=== PATIENT | male | born 1970 | race Caucasian/White ===

== ENCOUNTER 2020-02-11 10:35 | Observation (INO) ==
[2020-02-11] MEDS ORDERED: Ondansetron 4 MG/2 ML VIAL IVP STA (10:48)
[2020-02-11] MEDS ORDERED: 0.9 % Sodium Chloride 1,000 ML IVC ONE ×2 (10:49→13:20)
[2020-02-11] MEDS ORDERED: Isovue-370 500 ML BOTTLE IVP ONE (10:50)
[2020-02-11 11:09] LABS: Basophils # 0.1 K/mcL (0.0-0.2); Basophils % 0.3 %; Hemoglobin 16.9 g/dL (12.9-16.9); Immature Granulocytes % 0.6 % (0-4); Lymphocytes # 1.4 K/mcL (0.6-4.6); Lymphocytes % 7.3 %; Mean Corpuscular HGB Conc 36.7 g/dL (31.6-35.5); Mean Corpuscular Hemoglobin 32.2 pg (28.0-33.3); Mean Corpuscular Volume 87.6 fL (83.0-100.0); Mean Platelet Volume 8.9 fL (9.4-12.4); Monocytes # 1.3 K/mcL (0.0-1.3); Monocytes % 6.9 %; Neutrophils # 15.8 K/mcL (1.6-8.9); Platelet Count 510 K/mcL (140-400); Red Blood Count 5.25 M/mcL (4.19-5.50); Red Cell Distribution Width 11.9 % (11.5-14.5); Segmented Neutrophils % 84.9 %; White Blood Count 18.6 K/mcL (4.3-11.1)
[2020-02-11 11:29] LABS: Albumin/Globulin Ratio 1.5 (1.1-2.2); Bilirubin,Direct 0.1 mg/dL (0.0-0.2); Bilirubin,Indirect 0.8 mg/dL (0.0-1.0); Bilirubin,Total 0.9 mg/dL (0.3-1.0); Calcium 10.4 mg/dL (8.6-10.3); Globulin 3.3 g/dL (2.4-3.5); Potassium 2.8 mEq/L (3.5-5.1); Total Protein 8.3 g/dL (6.4-8.9)
[2020-02-11] MEDS ORDERED: *HR* Promethazine 25 MG/ML VIAL IVP STA (11:48)
[2020-02-11] MEDS ORDERED: Haloperidol Lactate 5 MG/ML VIAL IVP ONE (12:15)
[2020-02-11] MEDS ORDERED: *HR* Labetalol 20 MG/4 ML SYRINGE IVP ONE (12:26)
[2020-02-11] MEDS ORDERED: Ondansetron 4 MG/2 ML VIAL IVP ONE (12:27)
[2020-02-11 13:01] LABS: Basophils % 0.1 %; Hematocrit 45.1 % (37.5-50.1); Hemoglobin 15.9 g/dL (12.9-16.9); Immature Granulocytes % 0.5 % (0-4); Lymphocytes % 6.4 %; Mean Corpuscular HGB Conc 35.3 g/dL (31.6-35.5); Mean Corpuscular Hemoglobin 31.8 pg (28.0-33.3); Mean Corpuscular Volume 90.2 fL (83.0-100.0); Mean Platelet Volume 8.8 fL (9.4-12.4); Monocytes # 0.9 K/mcL (0.0-1.3); Monocytes % 5.6 %; Neutrophils # 13.5 K/mcL (1.6-8.9); Platelet Count 450 K/mcL (140-400); Red Cell Distribution Width 11.9 % (11.5-14.5); Segmented Neutrophils % 87.4 %; White Blood Count 15.4 K/mcL (4.3-11.1)
[2020-02-11 13:38] LABS: Calcium 9.7 mg/dL (8.6-10.3); Potassium 3.1 mEq/L (3.5-5.1)
[2020-02-11] MEDS ORDERED: *HR* Promethazine 25 MG/ML VIAL IVP PRN (14:56)
[2020-02-11] MEDS ORDERED: Acetaminophen 325 MG TABLET PO PRN (14:56)
[2020-02-11] MEDS ORDERED: Ondansetron 4 MG/2 ML VIAL IVP PRN (14:56)
[2020-02-11] MEDS ORDERED: Haloperidol Lactate 5 MG/ML VIAL IVP PRN (15:00)
[2020-02-11] MEDS ORDERED: 0.9 % Sodium Chloride w KCl 20 MEQ/1,000 ML MLS IVC SCH (15:00)
[2020-02-11] MEDS ORDERED: *HR* LORazepam 2 MG/ML VIAL IVP ONE (15:10)
[2020-02-11 15:21] LABS: Bilirubin,Urine Negative (Negative); Blood,Urine Negative (Negative); Clarity,Urine Clear (Clear); Color,Urine Light-Yellow (Yellow); Glucose,Urine (UA) 50 mg/dL (Normal); Hyaline Casts,Urine Many per lpf (None Seen); Ketones,Urine Negative (Negative); Leukocyte Esterase,Urine Negative (Negative); Mucus,Urine Few per lpf (None-Few); Nitrite,Urine Negative (Negative); Protein,Urine Trace mg/dL (Neg-Trace); RBC,Urine 0-3 per hpf (0-3); Specific Gravity,Urine 1.015 (1.010-1.025); Squamous Epithelial Cell,Urine Few per hpf (None-Few); Urobilinogen,Urine Normal (Normal)
[2020-02-11 15:29] LABS: Magnesium 1.7 mg/dL (1.6-2.6); Phosphorous 2.4 mg/dL (2.7-4.5)
[2020-02-11 15:51] LABS: Sodium, Urine 24.6 mEq/L
[2020-02-11] MEDS: Haloperidol Lactate 5 MG/ML VIAL IVP PRN (16:11)
[2020-02-11] MEDS: cefTRIAXone 1,000 MG in Water for inj. (sterile) 10 ML IVP SCH (18:31)
[2020-02-11] MEDS: Ondansetron 4 MG/2 ML VIAL IVP PRN (18:45)
[2020-02-11] MEDS ORDERED: Potassium Chloride 40 MEQ, Lidocaine 1% 2 ML in 0.9 % Sodium Chloride 500 ML IVPB ONE (19:28)
[2020-02-11] MEDS: *HR* Promethazine 25 MG/ML VIAL IVP PRN (21:28)
[2020-02-11] MEDS ORDERED: Acetaminophen IV 1,000 MG/100 ML INFUS..BTL IVPB ONE (21:36)
[2020-02-12] MEDS: Ondansetron 4 MG/2 ML VIAL IVP PRN (00:32)
[2020-02-12] MEDS: *HR* LORazepam 2 MG/ML VIAL IVP PRN ×4 (01:02→19:49)
[2020-02-12 01:14] LABS: Hematocrit 39.8 % (37.5-50.1); Mean Corpuscular HGB Conc 35.2 g/dL (31.6-35.5); Mean Corpuscular Hemoglobin 31.7 pg (28.0-33.3); Mean Corpuscular Volume 90.2 fL (83.0-100.0); Mean Platelet Volume 8.7 fL (9.4-12.4); Platelet Count 436 K/mcL (140-400); Red Blood Count 4.41 M/mcL (4.19-5.50); White Blood Count 13.1 K/mcL (4.3-11.1)
[2020-02-12 01:34] LABS: Calcium 8.5 mg/dL (8.6-10.3); Magnesium 1.7 mg/dL (1.6-2.6); Phosphorous 2.6 mg/dL (2.7-4.5)
[2020-02-12] MEDS ORDERED: Potassium Chloride 20 MEQ, Lidocaine 1% 2 ML in 0.9 % Sodium Chloride 250 ML IVPB ONE ×2 (01:37→08:50)
[2020-02-12] MEDS ORDERED: Prochlorperazine 10 MG/2 ML VIAL IVP PRN (03:31)
[2020-02-12] MEDS: Haloperidol Lactate 5 MG/ML VIAL IVP PRN (06:54)
[2020-02-12] MEDS: cefTRIAXone 1,000 MG in Water for inj. (sterile) 10 ML IVP SCH (08:46)
[2020-02-12] MEDS: *HR* Promethazine 25 MG/ML VIAL IVP PRN ×3 (08:48→23:28)
[2020-02-12] MEDS ORDERED: *HR* Promethazine 25 MG/ML VIAL IVP ONE (10:40)
[2020-02-12] MEDS ORDERED: QUEtiapine Fumarate 100 MG TABLET PO SCH (10:45)
[2020-02-12] MEDS ORDERED: lisinopriL 10 MG TABLET PO SCH (10:45)
[2020-02-12] MEDS ORDERED: Acetaminophen 325 MG TABLET PO ONE (20:58)
[2020-02-12] MEDS ORDERED: Apixaban 5 MG TABLET PO SCH (21:00)
[2020-02-12 23:12] VITALS: BP 121/70
[2020-02-13] MEDS ORDERED: Acetaminophen 325 MG TABLET PO ONE (02:13)
== END 2020-02-13 02:45 | disposition left against medical advice (07) ==
LOC: EMEROOARM 10:35 → 2ANU 10:35 → SUATTDRO 13:52 → 2ANU 15:04
PROVIDERS: ADMIT Internal Medicine; ATTEND Student in an Organized Health Care Education/Training Program

== ENCOUNTER 2021-03-21 13:04 | Observation (INO) ==
[2021-03-21 13:48] LABS: Basophils % 0.4 %; Eosinophils # 0.2 K/mcL (0.0-0.6); Eosinophils % 3.4 %; Immature Granulocytes % 0.4 % (0-4); Lymphocytes # 1.7 K/mcL (0.6-4.6); Lymphocytes % 31.3 %; Mean Corpuscular HGB Conc 34.9 g/dL (31.6-35.5); Mean Corpuscular Hemoglobin 31.3 pg (28.0-33.3); Mean Corpuscular Volume 89.6 fL (83.0-100.0); Mean Platelet Volume 9.1 fL (9.4-12.4); Monocytes # 0.3 K/mcL (0.0-1.3); Monocytes % 5.1 %; Neutrophils # 3.2 K/mcL (1.6-8.9); Platelet Count 316 K/mcL (140-400); Red Cell Distribution Width 11.1 % (11.5-14.5); Segmented Neutrophils % 59.4 %; White Blood Count 5.3 K/mcL (4.3-11.1)
[2021-03-21 13:56] LABS: INR 1.8; Prothrombin Time 20.3 Seconds (9.4-12.1)
[2021-03-21 13:59] LABS: Activated Partial Thrombo Time 46.1 Seconds (26.0-36.0)
[2021-03-21 14:09] LABS: BUN/Creatinine Ratio 6 (6-26); Blood Urea Nitrogen 7 mg/dL (6-20); Calcium 9.6 mg/dL (8.6-10.3); Carbon Dioxide 20 mEq/L (23-29); Chloride 103 mEq/L (98-107); Glucose 144 mg/dL (70-105); Osmolality,Calculated 277 (280-300); Potassium 3.8 mEq/L (3.5-5.1); Sodium 133 mEq/L (136-145); Troponin I < 0.03 ng/mL (< 0.04); eGFR For African Americans > 60 (> 60); eGFR For Non-African Americans > 60 (> 60)
[2021-03-21] MEDS ORDERED: Ondansetron 4 MG/2 ML VIAL IVP PRN (14:50)
[2021-03-21] MEDS ORDERED: Melatonin 3 MG TABLET PO PRN (14:50)
[2021-03-21] MEDS ORDERED: Perflutren Lipid Microsphere 1.3 ML in 0.9 % Sodium Chloride 8.7 ML IVP PRN (14:50)
[2021-03-21] MEDS ORDERED: Naloxone 0.4 MG/ML INJ IVP PRN (14:50)
[2021-03-21] MEDS ORDERED: Gabapentin 400 MG CAPSULE PO PRN (16:52)
[2021-03-21] MEDS: 0.9 % Sodium Chloride 1,000 ML IVC SCH (17:35)
[2021-03-21 19:22] LABS: Estimated Average Glucose 114 mg/dl; Hemoglobin A1C 5.6 %
[2021-03-21] MEDS: Apixaban 5 MG TABLET PO SCH (19:53)
[2021-03-21] MEDS: lisinopriL 20 MG TABLET PO SCH (19:53)
[2021-03-21] MEDS: QUEtiapine Fumarate 100 MG TABLET PO SCH (19:54)
[2021-03-21] MEDS ORDERED: *HR* Buprenorphine HCl 8 MG TAB.SUBL SL SCH (21:00)
[2021-03-21 21:25] LABS: Amphetamine Screen,Urine Negative ng/mL (Cutoff=1000); Barbiturate Screen,Urine Negative ng/mL (Cutoff=200); Benzodiazepines Screen,Urine Negative ng/mL (Cutoff=200); Cannabinoid Screen,Urine Negative ng/mL (Cutoff = 50); Cocaine Screen,Urine Negative ng/mL (Cutoff= 300); Opiate Screen,Urine Negative ng/mL (Cutoff=300); Phencyclidine Screen,Urine Negative ng/mL (Cutoff=25)
[2021-03-21] MEDS: hydrOXYzine pamoate 25 MG CAPSULE PO PRN (21:53)
[2021-03-22 03:26] LABS: Alanine Aminotransferase 20 Units/L (7-52); Albumin 4.1 g/dL (3.5-5.7); Albumin/Globulin Ratio 1.6 (1.1-2.2); Alkaline Phosphatase 83 Units/L (34-104); Aspartate Amino Transferase 20 Units/L (13-39); BUN/Creatinine Ratio 8 (6-26); Bilirubin,Total 0.3 mg/dL (0.3-1.0); Blood Urea Nitrogen 9 mg/dL (6-20); Calcium 9.1 mg/dL (8.6-10.3); Carbon Dioxide 23 mEq/L (23-29); Chloride 106 mEq/L (98-107); Chol/HDL Ratio 3.7 (0-4.9); Cholesterol 92 mg/dL (< 200); Globulin 2.5 g/dL (2.4-3.5); Glucose 90 mg/dL (70-105); HDL Cholesterol 25 mg/dL (40-59); LDL Cholesterol,Calculated 2 mg/dL (< 100); Osmolality,Calculated 282 (280-300); Potassium 4.2 mEq/L (3.5-5.1); Sodium 137 mEq/L (136-145); Total Protein 6.6 g/dL (6.4-8.9); Triglycerides 325 mg/dL (< 150); eGFR For African Americans > 60 (> 60); eGFR For Non-African Americans > 60 (> 60)
[2021-03-22] MEDS ORDERED: Regadenoson 0.4 MG/5 ML SYRINGE IVP ONE (06:46)
[2021-03-22 06:52] VITALS: BP 115/80; PULSE 58; TEMP 97.5; O2SAT 99
[2021-03-22] MEDS: 0.9 % Sodium Chloride 1,000 ML IVC SCH (09:13)
[2021-03-22] MEDS: QUEtiapine Fumarate 100 MG TABLET PO SCH (09:26)
[2021-03-22] MEDS: Apixaban 5 MG TABLET PO SCH (09:26)
[2021-03-22] MEDS: lisinopriL 20 MG TABLET PO SCH (09:26)
[2021-03-22] MEDS: hydrOXYzine pamoate 25 MG CAPSULE PO PRN (09:27)
[2021-03-22] MEDS ORDERED: *HR* Buprenorphine HCl 2 MG SUBLINGUAL TABLET SL SCH (10:00)
== END 2021-03-22 14:48 | disposition home or self-care (01) ==
LOC: EMEROOARM 13:04 → 3BNU 13:04
PROVIDERS: ADMIT Internal Medicine; ATTEND Internal Medicine

== ENCOUNTER 2021-08-09 14:36 | Observation (INO) ==
[2021-08-09] MEDS ORDERED: 0.9 % Sodium Chloride 1,000 ML IVC ONE ×2 (15:14→16:51)
[2021-08-09 15:36] LABS: Basophils # 0.1 K/mcL (0.0-0.2); Basophils % 0.7 %; Eosinophils # 0.1 K/mcL (0.0-0.6); Eosinophils % 1.8 %; Hematocrit 43.3 % (37.5-50.1); Immature Granulocytes % 0.4 % (0-4); Lymphocytes # 2.1 K/mcL (0.6-4.6); Lymphocytes % 31.2 %; Mean Corpuscular Hemoglobin 31.1 pg (28.0-33.3); Mean Corpuscular Volume 84.1 fL (83.0-100.0); Monocytes # 0.7 K/mcL (0.0-1.3); Neutrophils # 3.8 K/mcL (1.6-8.9); Platelet Count 373 K/mcL (140-400); Red Blood Count 5.15 M/mcL (4.19-5.50); Segmented Neutrophils % 55.9 %; White Blood Count 6.8 K/mcL (4.3-11.1)
[2021-08-09 15:49] LABS: Alanine Aminotransferase 22 Units/L (7-52); Albumin 4.4 g/dL (3.5-5.7); Albumin/Globulin Ratio 1.8 (1.1-2.2); Alkaline Phosphatase 66 Units/L (34-104); Aspartate Amino Transferase 23 Units/L (13-39); BUN/Creatinine Ratio 8 (6-26); Bilirubin,Direct 0.4 mg/dL (0.0-0.2); Bilirubin,Indirect 1.2 mg/dL (0.0-1.0); Bilirubin,Total 1.6 mg/dL (0.3-1.0); Blood Urea Nitrogen 13 mg/dL (6-20); Calcium 9.2 mg/dL (8.6-10.3); Carbon Dioxide 22 mEq/L (23-29); Chloride 89 mEq/L (98-107); Creatine Kinase 293 Units/L (30-223); Ethanol < 10 mg/dL (Less than 10); Globulin 2.4 g/dL (2.4-3.5); Glucose 87 mg/dL (70-105); Osmolality,Calculated 265 (280-300); Potassium 2.7 mEq/L (3.5-5.1); Sodium 128 mEq/L (136-145); Total Protein 6.8 g/dL (6.4-8.9); Troponin I < 0.03 ng/mL (< 0.04); eGFR For African Americans 56 (> 60); eGFR For Non-African Americans 46 (> 60)
[2021-08-09 15:58] LABS: Amphetamine Screen,Urine Negative ng/mL (Cutoff=1000); Barbiturate Screen,Urine Negative ng/mL (Cutoff=200); Benzodiazepines Screen,Urine Negative ng/mL (Cutoff=200); Cannabinoid Screen,Urine Negative ng/mL (Cutoff = 50); Cocaine Screen,Urine Negative ng/mL (Cutoff= 300); Opiate Screen,Urine Negative ng/mL (Cutoff=300); Phencyclidine Screen,Urine Negative ng/mL (Cutoff=25)
[2021-08-09 16:20] LABS: INR 1.4; Prothrombin Time 15.2 Seconds (9.4-12.1)
[2021-08-09 16:23] LABS: Activated Partial Thrombo Time 28.6 Seconds (26.0-36.0)
[2021-08-09 16:32] LABS: Amorphous Sediment,Urine Few per hpf (None-Few); Bacteria,Urine Few per hpf (None-Few); Bilirubin,Urine Negative (Negative); Blood,Urine Negative (Negative); Budding Yeast,Urine Few per hpf (None Seen); Calcium Oxalate Crystals,Urine Present per hpf; Clarity,Urine Clear (Clear); Color,Urine Yellow (Yellow); Glucose,Urine (UA) Normal (Normal); Ketones,Urine Negative (Negative); Leukocyte Esterase,Urine Large (Negative); Mucus,Urine Few per lpf (None-Few); Nitrite,Urine Negative (Negative); PH,Urine 6.5 pH Units (5.0-8.0); Protein,Urine 50 mg/dL (Neg-Trace); RBC,Urine 15-30 per hpf (0-3); Specific Gravity,Urine 1.019 (1.010-1.025); Squamous Epithelial Cell,Urine Few per hpf (None-Few); WBC,Urine 0-3 per hpf (0-3)
[2021-08-09] MEDS ORDERED: Isovue-370 500 ML BOTTLE IVP ONE (16:49)
[2021-08-09] MEDS ORDERED: cefTRIAXone 1,000 MG in 0.9 % Sodium Chloride Mini Bag 100 ML IVPB ONE (16:51)
[2021-08-09 19:59] LABS: Acetaminophen < 10 mcg/mL (10-20); Salicylate < 2.5 mg/dL (15.0-30.0)
[2021-08-09 20:32] LABS: Adenovirus Not Detected (Not Detect); Coronavirus 229E Not Detected (Not Detect); Coronavirus HKU1 Not Detected (Not Detect); Coronavirus NL63 Not Detected (Not Detect); Coronavirus OC43 Not Detected (Not Detect); Human Metapneumovirus Not Detected (Not Detect); Human Rhinovirus/Enterovirus Not Detected (Not Detect); SARS-CoV-2 Not Detected (Not Detect)
[2021-08-09 20:33] LABS: Bordetella Pertussis Not Detected (Not Detect); Chlamydophila pneumoniae Not Detected (Not Detect); Influenza A Subtype 2009 H1 Not Detected (Not Detect); Influenza B Not Detected (Not Detect); Mycoplasma pneumoniae Not Detected (Not Detect); Parainfluenza Virus 1 Not Detected (Not Detect); Parainfluenza Virus 2 Not Detected (Not Detect); Parainfluenza Virus 3 Not Detected (Not Detect); Parainfluenza Virus 4 Not Detected (Not Detect); Respiratory Syncytial Virus Not Detected (Not Detect)
[2021-08-09] MEDS ORDERED: Naloxone 0.4 MG/ML INJ IVP PRN (20:43)
[2021-08-09] MEDS ORDERED: Melatonin 3 MG TABLET PO PRN (20:43)
[2021-08-09] MEDS ORDERED: Ondansetron ODT 4 MG TAB.RAPDIS SL PRN (20:43)
[2021-08-09] MEDS ORDERED: Perflutren Lipid Microsphere 1.3 ML in 0.9 % Sodium Chloride 8.7 ML IVP PRN (22:44)
[2021-08-09] MEDS ORDERED: QUEtiapine Fumarate 100 MG TABLET PO SCH (23:00)
[2021-08-09] MEDS ORDERED: *HR* LORazepam 2 MG/ML VIAL IVP ONE (23:08)
[2021-08-09] MEDS ORDERED: Apixaban 5 MG TABLET PO ONE (23:15)
[2021-08-09] MEDS: QUEtiapine Fumarate 100 MG TABLET PO SCH (23:36)
[2021-08-10 02:10] LABS: Folate 7.1 ng/mL (3.0-16.0)
[2021-08-10 02:42] LABS: Acetaminophen < 10 mcg/mL (10-20)
[2021-08-10 07:15] VITALS: O2SAT 96
[2021-08-10] MEDS: QUEtiapine Fumarate 100 MG TABLET PO SCH (07:35)
[2021-08-10 08:08] LABS: Alanine Aminotransferase 21 Units/L (7-52); Albumin 4.2 g/dL (3.5-5.7); Albumin/Globulin Ratio 1.8 (1.1-2.2); Alkaline Phosphatase 60 Units/L (34-104); Aspartate Amino Transferase 22 Units/L (13-39); BUN/Creatinine Ratio 9 (6-26); Bilirubin,Total 1.2 mg/dL (0.3-1.0); Blood Urea Nitrogen 9 mg/dL (6-20); Calcium 8.7 mg/dL (8.6-10.3); Carbon Dioxide 18 mEq/L (23-29); Chloride 95 mEq/L (98-107); Globulin 2.4 g/dL (2.4-3.5); Glucose 84 mg/dL (70-105); Magnesium 1.8 mg/dL (1.6-2.6); Osmolality,Calculated 268 (280-300); Potassium 2.8 mEq/L (3.5-5.1); Sodium 130 mEq/L (136-145); Total Protein 6.6 g/dL (6.4-8.9); eGFR For African Americans > 60 (> 60); eGFR For Non-African Americans > 60 (> 60)
[2021-08-10] MEDS ORDERED: cefTRIAXone 1,000 MG in 0.9 % Sodium Chloride 10 ML IVP SCH (09:00)
[2021-08-10] MEDS ORDERED: Apixaban 5 MG TABLET PO SCH (09:00)
[2021-08-10 10:59] VITALS: BP 104/62; PULSE 84; TEMP 98.2
[2021-08-10 12:53] LABS: BUN/Creatinine Ratio 8 (6-26); Blood Urea Nitrogen 8 mg/dL (6-20); Calcium 8.9 mg/dL (8.6-10.3); Carbon Dioxide 22 mEq/L (23-29); Chloride 95 mEq/L (98-107); Glucose 109 mg/dL (70-105); Osmolality,Calculated 271 (280-300); Potassium 2.9 mEq/L (3.5-5.1); Sodium 131 mEq/L (136-145); eGFR For African Americans > 60 (> 60); eGFR For Non-African Americans > 60 (> 60)
[2021-08-11] MEDS ORDERED: QUEtiapine Fumarate 100 MG TABLET PO SCH (09:00)
== END 2021-08-10 15:17 | disposition home or self-care (01) ==
LOC: 2ANU 14:36 → EMEROOARM 14:36 → SUATTDRO 19:40 → 2ANU 20:35
PROVIDERS: ADMIT Internal Medicine; ATTEND Internal Medicine

== ENCOUNTER 2021-08-13 09:52 | Inpatient (IN) ==
[2021-08-13 11:01] LABS: Bilirubin,Urine Negative (Negative); Blood,Urine Negative (Negative); Clarity,Urine Clear (Clear); Color,Urine Colorless (Yellow); Glucose,Urine (UA) Normal (Normal); Ketones,Urine Negative (Negative); Leukocyte Esterase,Urine Negative (Negative); Nitrite,Urine Negative (Negative); PH,Urine 6.5 pH Units (5.0-8.0); Protein,Urine Negative (Neg-Trace); Specific Gravity,Urine 1.005 (1.010-1.025); Urobilinogen,Urine Normal (Normal)
[2021-08-13 11:10] LABS: Amphetamine Screen,Urine Negative ng/mL (Cutoff=1000); Barbiturate Screen,Urine Negative ng/mL (Cutoff=200); Benzodiazepines Screen,Urine Negative ng/mL (Cutoff=200); Cannabinoid Screen,Urine Negative ng/mL (Cutoff = 50); Cocaine Screen,Urine Negative ng/mL (Cutoff= 300); Opiate Screen,Urine Negative ng/mL (Cutoff=300); Phencyclidine Screen,Urine Negative ng/mL (Cutoff=25)
[2021-08-13 11:18] LABS: Eosinophils % 1.7 %; Immature Granulocytes % 0.2 % (0-4); Mean Corpuscular Hemoglobin 30.7 pg (28.0-33.3)
[2021-08-13 11:28] LABS: Basophils % 0.8 %; Eosinophils # 0.1 K/mcL (0.0-0.6); Hematocrit 39.1 % (37.5-50.1); Hemoglobin 14.6 g/dL (12.9-16.9); Lymphocytes # 1.4 K/mcL (0.6-4.6); Lymphocytes % 26.9 %; Mean Corpuscular Volume 82.1 fL (83.0-100.0); Mean Platelet Volume 10.2 fL (9.4-12.4); Monocytes # 0.7 K/mcL (0.0-1.3); Platelet Count 336 K/mcL (140-400); Red Blood Count 4.76 M/mcL (4.19-5.50); Red Cell Distribution Width 11.8 % (11.5-14.5); Segmented Neutrophils % 56.4 %; White Blood Count 5.3 K/mcL (4.3-11.1)
[2021-08-13 11:32] LABS: Mean Corpuscular HGB Conc 37.3 g/dL (31.6-35.5)
[2021-08-13 11:44] LABS: Acetaminophen < 10 mcg/mL (10-20); Alanine Aminotransferase 29 Units/L (7-52); Albumin 4.4 g/dL (3.5-5.7); Albumin/Globulin Ratio 2.2 (1.1-2.2); Alkaline Phosphatase 65 Units/L (34-104); Aspartate Amino Transferase 34 Units/L (13-39); BUN/Creatinine Ratio 2 (6-26); Bilirubin,Direct 0.3 mg/dL (0.0-0.2); Bilirubin,Indirect 0.7 mg/dL (0.0-1.0); Blood Urea Nitrogen 2 mg/dL (6-20); Calcium 8.5 mg/dL (8.6-10.3); Carbon Dioxide 29 mEq/L (23-29); Chloride 83 mEq/L (98-107); Ethanol < 10 mg/dL (Less than 10); Glucose 102 mg/dL (70-105); Osmolality,Calculated 252 (280-300); Potassium 2.2 mEq/L (3.5-5.1); Salicylate < 2.5 mg/dL (15.0-30.0); Sodium 123 mEq/L (136-145); Total Protein 6.4 g/dL (6.4-8.9); Troponin I 0.03 ng/mL (< 0.04); eGFR For African Americans > 60 (> 60); eGFR For Non-African Americans > 60 (> 60)
[2021-08-13 12:46] LABS: BUN/Creatinine Ratio 2 (6-26); Blood Urea Nitrogen 2 mg/dL (6-20); Calcium 8.6 mg/dL (8.6-10.3); Carbon Dioxide 30 mEq/L (23-29); Chloride 84 mEq/L (98-107); Glucose 105 mg/dL (70-105); Magnesium 1.5 mg/dL (1.6-2.6); Osmolality,Calculated 255 (280-300); Potassium 2.4 mEq/L (3.5-5.1); Sodium 124 mEq/L (136-145); eGFR For African Americans > 60 (> 60); eGFR For Non-African Americans > 60 (> 60)
[2021-08-13] MEDS ORDERED: 0.9 % Sodium Chloride 1,000 ML IVC ONE (13:23)
[2021-08-13] MEDS ORDERED: Magnesium Sulfate 1 GM/102 ML PIGGYBACK IVPB ONE (13:24)
[2021-08-13] MEDS ORDERED: Naloxone 0.4 MG/ML INJ IVP PRN (15:32)
[2021-08-13] MEDS ORDERED: Ondansetron ODT 4 MG TAB.RAPDIS SL PRN (15:32)
[2021-08-13] MEDS ORDERED: Potassium Chloride Elixir 20 MEQ/15 ML UDC PO ONE ×2 (15:35→20:00)
[2021-08-13 17:27] LABS: BUN/Creatinine Ratio 3 (6-26); Blood Urea Nitrogen 2 mg/dL (6-20); Calcium 8.2 mg/dL (8.6-10.3); Carbon Dioxide 27 mEq/L (23-29); Chloride 91 mEq/L (98-107); Glucose 102 mg/dL (70-105); Osmolality,Calculated 262 (280-300); Potassium 2.8 mEq/L (3.5-5.1); Sodium 128 mEq/L (136-145); eGFR For African Americans > 60 (> 60); eGFR For Non-African Americans > 60 (> 60)
[2021-08-13] MEDS ORDERED: 0.9 % Sodium Chloride 1,000 ML IVC SCH (17:45)
[2021-08-13] MEDS: Apixaban 5 MG TABLET PO SCH (19:52)
[2021-08-13] MEDS: QUEtiapine Fumarate 100 MG TABLET PO SCH (19:52)
[2021-08-13] MEDS ORDERED: Potassium Chloride Elixir 20 MEQ/15 ML UDC PO SCH (20:00)
[2021-08-13] MEDS: Melatonin 3 MG TABLET PO PRN (21:26)
[2021-08-13] MEDS: CarBAMazepine XR (12 hr) 100 MG TAB PO SCH (21:26)
[2021-08-13 22:01] LABS: Potassium,Urine 5.2 mEq/L; Sodium, Urine 12.2 mEq/L
[2021-08-14 06:32] LABS: Basophils % 0.3 %; Eosinophils # 0.1 K/mcL (0.0-0.6); Hematocrit 39.4 % (37.5-50.1); Hemoglobin 14.4 g/dL (12.9-16.9); Immature Granulocytes % 0.3 % (0-4); Lymphocytes # 1.8 K/mcL (0.6-4.6); Lymphocytes % 19.9 %; Mean Corpuscular HGB Conc 36.5 g/dL (31.6-35.5); Mean Corpuscular Hemoglobin 30.5 pg (28.0-33.3); Mean Corpuscular Volume 83.5 fL (83.0-100.0); Mean Platelet Volume 10.4 fL (9.4-12.4); Monocytes % 10.6 %; Neutrophils # 6.3 K/mcL (1.6-8.9); Platelet Count 326 K/mcL (140-400); Red Blood Count 4.72 M/mcL (4.19-5.50); Segmented Neutrophils % 67.9 %
[2021-08-14 06:35] LABS: White Blood Count 9.2 K/mcL (4.3-11.1)
[2021-08-14 06:44] LABS: BUN/Creatinine Ratio 3 (6-26); Blood Urea Nitrogen 2 mg/dL (6-20); Calcium 8.5 mg/dL (8.6-10.3); Carbon Dioxide 31 mEq/L (23-29); Chloride 96 mEq/L (98-107); Glucose 94 mg/dL (70-105); Magnesium 1.8 mg/dL (1.6-2.6); Osmolality,Calculated 272 (280-300); Phosphorous 2.4 mg/dL (2.7-4.5); Potassium 2.7 mEq/L (3.5-5.1); Sodium 133 mEq/L (136-145); eGFR For African Americans > 60 (> 60); eGFR For Non-African Americans > 60 (> 60)
[2021-08-14] MEDS ORDERED: Potassium Chloride Elixir 20 MEQ/15 ML UDC PO ONE (07:46)
[2021-08-14] MEDS: QUEtiapine Fumarate 100 MG TABLET PO SCH ×2 (09:11→20:35)
[2021-08-14] MEDS: Apixaban 5 MG TABLET PO SCH ×2 (09:11→20:35)
[2021-08-14] MEDS: CarBAMazepine XR (12 hr) 100 MG TAB PO SCH ×2 (09:11→20:35)
[2021-08-14] MEDS ORDERED: Magnesium Sulfate 1 GM/102 ML PIGGYBACK IVPB ONE (10:37)
[2021-08-14 12:05] LABS: Carbamazepine (Tegretol) 8 mcg/mL (4-12)
[2021-08-14] MEDS: haloperidoL 1 MG TABLET PO PRN ×2 (14:46→20:36)
[2021-08-14] MEDS: Melatonin 3 MG TABLET PO PRN (20:48)
[2021-08-15 02:44] LABS: Basophils % 0.6 %; Eosinophils # 0.2 K/mcL (0.0-0.6); Eosinophils % 2.4 %; Hematocrit 40.1 % (37.5-50.1); Hemoglobin 14.5 g/dL (12.9-16.9); Immature Granulocytes % 0.3 % (0-4); Lymphocytes # 2.3 K/mcL (0.6-4.6); Lymphocytes % 37.4 %; Mean Corpuscular HGB Conc 36.2 g/dL (31.6-35.5); Mean Corpuscular Hemoglobin 30.7 pg (28.0-33.3); Mean Platelet Volume 10.2 fL (9.4-12.4); Monocytes # 0.6 K/mcL (0.0-1.3); Monocytes % 9.3 %; Neutrophils # 3.1 K/mcL (1.6-8.9); Platelet Count 311 K/mcL (140-400); Red Blood Count 4.72 M/mcL (4.19-5.50); Red Cell Distribution Width 12.1 % (11.5-14.5); White Blood Count 6.3 K/mcL (4.3-11.1)
[2021-08-15 03:00] LABS: BUN/Creatinine Ratio 6 (6-26); Blood Urea Nitrogen 5 mg/dL (6-20); Calcium 8.6 mg/dL (8.6-10.3); Carbon Dioxide 27 mEq/L (23-29); Chloride 97 mEq/L (98-107); Glucose 91 mg/dL (70-105); Osmolality,Calculated 273 (280-300); Potassium 3.3 mEq/L (3.5-5.1); Sodium 133 mEq/L (136-145); eGFR For African Americans > 60 (> 60); eGFR For Non-African Americans > 60 (> 60)
[2021-08-15] MEDS ORDERED: Potassium Chloride Elixir 20 MEQ/15 ML UDC PO ONE (07:50)
[2021-08-15] MEDS: QUEtiapine Fumarate 100 MG TABLET PO SCH (08:56)
[2021-08-15] MEDS: CarBAMazepine XR (12 hr) 100 MG TAB PO SCH ×2 (08:56→20:38)
[2021-08-15] MEDS: Apixaban 5 MG TABLET PO SCH ×2 (08:56→20:37)
[2021-08-15] MEDS ORDERED: Isovue-370 500 ML BOTTLE IVP ONE (14:15)
[2021-08-15] MEDS: QUEtiapine Fumarate 300 MG TABLET PO SCH (20:38)
[2021-08-15] MEDS ORDERED: *HR* Buprenorphine HCl 8 MG TAB.SUBL SL SCH (21:00)
[2021-08-16 04:23] LABS: Basophils # 0.1 K/mcL (0.0-0.2); Basophils % 0.9 %; Eosinophils # 0.2 K/mcL (0.0-0.6); Eosinophils % 3.4 %; Hematocrit 41.8 % (37.5-50.1); Immature Granulocytes % 0.3 % (0-4); Lymphocytes # 2.5 K/mcL (0.6-4.6); Lymphocytes % 39.3 %; Mean Corpuscular HGB Conc 35.9 g/dL (31.6-35.5); Mean Corpuscular Hemoglobin 31.1 pg (28.0-33.3); Mean Corpuscular Volume 86.5 fL (83.0-100.0); Mean Platelet Volume 9.8 fL (9.4-12.4); Monocytes # 0.6 K/mcL (0.0-1.3); Monocytes % 9.7 %; Platelet Count 358 K/mcL (140-400); Red Blood Count 4.83 M/mcL (4.19-5.50); Red Cell Distribution Width 11.9 % (11.5-14.5); Segmented Neutrophils % 46.4 %; White Blood Count 6.4 K/mcL (4.3-11.1)
[2021-08-16 04:43] LABS: BUN/Creatinine Ratio 7 (6-26); Blood Urea Nitrogen 6 mg/dL (6-20); Calcium 8.8 mg/dL (8.6-10.3); Carbon Dioxide 27 mEq/L (23-29); Chloride 97 mEq/L (98-107); Glucose 84 mg/dL (70-105); Osmolality,Calculated 275 (280-300); Potassium 3.4 mEq/L (3.5-5.1); Sodium 134 mEq/L (136-145); eGFR For African Americans > 60 (> 60); eGFR For Non-African Americans > 60 (> 60)
[2021-08-16] MEDS ORDERED: *HR* Buprenorphine HCl 8 MG TAB.SUBL SL SCH (09:00)
[2021-08-16] MEDS: Apixaban 5 MG TABLET PO SCH ×2 (09:45→19:46)
[2021-08-16] MEDS: QUEtiapine Fumarate 100 MG TABLET PO SCH (09:45)
[2021-08-16] MEDS: CarBAMazepine XR (12 hr) 100 MG TAB PO SCH ×2 (09:45→19:46)
[2021-08-16] MEDS: haloperidoL 1 MG TABLET PO PRN ×2 (09:51→18:47)
[2021-08-16] MEDS: Acetaminophen 325 MG TABLET PO PRN (11:22)
[2021-08-16 15:26] LABS: Bilirubin,Urine Negative (Negative); Blood,Urine Negative (Negative); Clarity,Urine Clear (Clear); Color,Urine Colorless (Yellow); Glucose,Urine (UA) Normal (Normal); Ketones,Urine Negative (Negative); Leukocyte Esterase,Urine Negative (Negative); Nitrite,Urine Negative (Negative); PH,Urine 6.5 pH Units (5.0-8.0); Protein,Urine Negative (Neg-Trace); Specific Gravity,Urine 1.007 (1.010-1.025); Urobilinogen,Urine Normal (Normal)
[2021-08-16] MEDS: *HR* Buprenorphine HCl 8 MG TAB.SUBL SL SCH (16:57)
[2021-08-16] MEDS: QUEtiapine Fumarate 300 MG TABLET PO SCH (19:46)
[2021-08-16] MEDS: Nicotine 7 MG PATCH.TD24 TD SCH (20:51)
[2021-08-16] MEDS ORDERED: *HR* Labetalol 20 MG/4 ML SYRINGE IVP ONE (21:33)
[2021-08-17 01:56] LABS: Basophils # 0.1 K/mcL (0.0-0.2); Basophils % 0.8 %; Eosinophils # 0.4 K/mcL (0.0-0.6); Eosinophils % 6.1 %; Hematocrit 38.5 % (37.5-50.1); Hemoglobin 13.8 g/dL (12.9-16.9); Immature Granulocytes % 0.3 % (0-4); Lymphocytes # 2.6 K/mcL (0.6-4.6); Lymphocytes % 43.4 %; Mean Corpuscular HGB Conc 35.8 g/dL (31.6-35.5); Mean Corpuscular Hemoglobin 30.5 pg (28.0-33.3); Mean Platelet Volume 9.5 fL (9.4-12.4); Monocytes # 0.5 K/mcL (0.0-1.3); Monocytes % 7.9 %; Neutrophils # 2.5 K/mcL (1.6-8.9); Platelet Count 340 K/mcL (140-400); Red Blood Count 4.53 M/mcL (4.19-5.50); Red Cell Distribution Width 11.8 % (11.5-14.5); Segmented Neutrophils % 41.5 %
[2021-08-17 02:18] LABS: BUN/Creatinine Ratio 7 (6-26); Blood Urea Nitrogen 6 mg/dL (6-20); Calcium 8.7 mg/dL (8.6-10.3); Carbon Dioxide 27 mEq/L (23-29); Chloride 96 mEq/L (98-107); Glucose 122 mg/dL (70-105); Osmolality,Calculated 275 (280-300); Potassium 3.3 mEq/L (3.5-5.1); Sodium 133 mEq/L (136-145); eGFR For African Americans > 60 (> 60); eGFR For Non-African Americans > 60 (> 60)
[2021-08-17] MEDS ORDERED: Potassium Chloride Elixir 20 MEQ/15 ML UDC PO ONE (07:56)
[2021-08-17] MEDS: Nicotine 7 MG PATCH.TD24 TD SCH (08:47)
[2021-08-17] MEDS: QUEtiapine Fumarate 100 MG TABLET PO SCH (08:47)
[2021-08-17] MEDS: Apixaban 5 MG TABLET PO SCH ×2 (08:47→20:57)
[2021-08-17] MEDS: CarBAMazepine XR (12 hr) 100 MG TAB PO SCH ×2 (08:48→20:56)
[2021-08-17] MEDS: haloperidoL 1 MG TABLET PO PRN (14:19)
[2021-08-17] MEDS: *HR* Buprenorphine HCl 8 MG TAB.SUBL SL SCH (16:18)
[2021-08-17] MEDS: QUEtiapine Fumarate 300 MG TABLET PO SCH (20:56)
[2021-08-17] MEDS: Acetaminophen 325 MG TABLET PO PRN (20:57)
[2021-08-17] MEDS: Melatonin 3 MG TABLET PO PRN (21:02)
[2021-08-18 05:34] LABS: Basophils # 0.1 K/mcL (0.0-0.2); Eosinophils # 0.3 K/mcL (0.0-0.6); Hematocrit 37.8 % (37.5-50.1); Hemoglobin 13.7 g/dL (12.9-16.9); Immature Granulocytes % 0.2 % (0-4); Lymphocytes # 2.5 K/mcL (0.6-4.6); Lymphocytes % 51.9 %; Mean Corpuscular HGB Conc 36.2 g/dL (31.6-35.5); Mean Corpuscular Hemoglobin 31.5 pg (28.0-33.3); Mean Corpuscular Volume 86.9 fL (83.0-100.0); Mean Platelet Volume 9.9 fL (9.4-12.4); Monocytes # 0.5 K/mcL (0.0-1.3); Monocytes % 9.3 %; Neutrophils # 1.5 K/mcL (1.6-8.9); Platelet Count 351 K/mcL (140-400); Red Blood Count 4.35 M/mcL (4.19-5.50); Red Cell Distribution Width 11.8 % (11.5-14.5); Segmented Neutrophils % 31.6 %; White Blood Count 4.8 K/mcL (4.3-11.1)
[2021-08-18 07:15] LABS: BUN/Creatinine Ratio 9 (6-26); Blood Urea Nitrogen 7 mg/dL (6-20); Carbon Dioxide 29 mEq/L (23-29); Chloride 97 mEq/L (98-107); Glucose 113 mg/dL (70-105); Osmolality,Calculated 279 (280-300); Potassium 3.3 mEq/L (3.5-5.1); Sodium 135 mEq/L (136-145); eGFR For African Americans > 60 (> 60); eGFR For Non-African Americans > 60 (> 60)
[2021-08-18] MEDS: QUEtiapine Fumarate 100 MG TABLET PO SCH (09:04)
[2021-08-18] MEDS: Apixaban 5 MG TABLET PO SCH ×2 (09:04→19:53)
[2021-08-18] MEDS: Nicotine 7 MG PATCH.TD24 TD SCH (09:05)
[2021-08-18] MEDS: CarBAMazepine XR (12 hr) 100 MG TAB PO SCH ×2 (09:11→19:53)
[2021-08-18] MEDS: haloperidoL 1 MG TABLET PO PRN ×2 (12:32→19:53)
[2021-08-18] MEDS: QUEtiapine Fumarate 25 MG TABLET PO PRN (15:37)
[2021-08-18] MEDS: *HR* Buprenorphine HCl 8 MG TAB.SUBL SL SCH (15:43)
[2021-08-18] MEDS: QUEtiapine Fumarate 300 MG TABLET PO SCH (19:53)
[2021-08-18] MEDS: Acetaminophen 325 MG TABLET PO PRN (19:57)
[2021-08-18] MEDS: Melatonin 3 MG TABLET PO PRN (20:59)
[2021-08-19] MEDS: Acetaminophen 325 MG TABLET PO PRN ×2 (08:58→20:55)
[2021-08-19] MEDS: Apixaban 5 MG TABLET PO SCH ×2 (08:58→20:55)
[2021-08-19] MEDS: QUEtiapine Fumarate 100 MG TABLET PO SCH (08:58)
[2021-08-19] MEDS: Nicotine 7 MG PATCH.TD24 TD SCH (08:58)
[2021-08-19] MEDS: CarBAMazepine XR (12 hr) 100 MG TAB PO SCH ×2 (09:05→20:56)
[2021-08-19] MEDS: haloperidoL 1 MG TABLET PO PRN ×2 (11:41→18:16)
[2021-08-19] MEDS ORDERED: Ibuprofen 400 MG TABLET PO PRN (11:46)
[2021-08-19] MEDS: *HR* Buprenorphine HCl 8 MG TAB.SUBL SL SCH (13:18)
[2021-08-19] MEDS: QUEtiapine Fumarate 25 MG TABLET PO PRN (15:01)
[2021-08-19] MEDS: QUEtiapine Fumarate 300 MG TABLET PO SCH (20:55)
[2021-08-19] MEDS: Melatonin 3 MG TABLET PO PRN (20:56)
[2021-08-20] MEDS: haloperidoL 1 MG TABLET PO PRN ×3 (00:18→19:46)
[2021-08-20] MEDS: Nicotine 7 MG PATCH.TD24 TD SCH (08:44)
[2021-08-20] MEDS: CarBAMazepine XR (12 hr) 100 MG TAB PO SCH ×2 (08:45→19:45)
[2021-08-20] MEDS: Apixaban 5 MG TABLET PO SCH ×2 (08:45→19:45)
[2021-08-20] MEDS: Acetaminophen 325 MG TABLET PO PRN (08:45)
[2021-08-20] MEDS: QUEtiapine Fumarate 100 MG TABLET PO SCH (08:45)
[2021-08-20] MEDS: *HR* Buprenorphine HCl 8 MG TAB.SUBL SL SCH (12:34)
[2021-08-20] MEDS ORDERED: Ibuprofen 400 MG TABLET PO PRN (12:59)
[2021-08-20] MEDS: QUEtiapine Fumarate 25 MG TABLET PO PRN (17:13)
[2021-08-20] MEDS: QUEtiapine Fumarate 300 MG TABLET PO SCH (19:45)
[2021-08-20] MEDS: Melatonin 3 MG TABLET PO PRN (22:49)
[2021-08-21] MEDS: hydroCHLOROthiazide 25 MG TABLET PO SCH (10:19)
[2021-08-21] MEDS: QUEtiapine Fumarate 100 MG TABLET PO SCH (10:19)
[2021-08-21] MEDS: CarBAMazepine XR (12 hr) 100 MG TAB PO SCH ×2 (10:20→20:15)
[2021-08-21] MEDS: Apixaban 5 MG TABLET PO SCH ×2 (10:20→20:15)
[2021-08-21] MEDS: Nicotine 7 MG PATCH.TD24 TD SCH (10:20)
[2021-08-21] MEDS: *HR* Buprenorphine HCl 8 MG TAB.SUBL SL SCH (15:06)
[2021-08-21] MEDS: haloperidoL 1 MG TABLET PO PRN ×2 (17:40→23:56)
[2021-08-21] MEDS: QUEtiapine Fumarate 300 MG TABLET PO SCH (20:15)
[2021-08-21] MEDS: Melatonin 3 MG TABLET PO PRN (21:33)
[2021-08-22] MEDS: Apixaban 5 MG TABLET PO SCH ×2 (08:37→19:45)
[2021-08-22] MEDS: CarBAMazepine XR (12 hr) 100 MG TAB PO SCH ×2 (08:38→19:45)
[2021-08-22] MEDS: hydroCHLOROthiazide 25 MG TABLET PO SCH (08:38)
[2021-08-22] MEDS: QUEtiapine Fumarate 100 MG TABLET PO SCH (08:38)
[2021-08-22] MEDS: Nicotine 7 MG PATCH.TD24 TD SCH (08:40)
[2021-08-22] MEDS: haloperidoL 1 MG TABLET PO PRN ×2 (09:45→16:00)
[2021-08-22] MEDS: *HR* Buprenorphine HCl 8 MG TAB.SUBL SL SCH (12:04)
[2021-08-22 19:45] VITALS: O2SAT 98
[2021-08-22] MEDS: QUEtiapine Fumarate 300 MG TABLET PO SCH (19:45)
[2021-08-22] MEDS: Melatonin 3 MG TABLET PO PRN (22:06)
[2021-08-23] MEDS: Nicotine 7 MG PATCH.TD24 TD SCH (09:07)
[2021-08-23] MEDS: Apixaban 5 MG TABLET PO SCH ×2 (09:08→20:23)
[2021-08-23] MEDS: hydroCHLOROthiazide 25 MG TABLET PO SCH (09:08)
[2021-08-23] MEDS: CarBAMazepine XR (12 hr) 100 MG TAB PO SCH ×2 (09:10→20:23)
[2021-08-23] MEDS: QUEtiapine Fumarate 100 MG TABLET PO SCH (09:10)
[2021-08-23] MEDS: *HR* Buprenorphine HCl 8 MG TAB.SUBL SL SCH (13:21)
[2021-08-23] MEDS: haloperidoL 1 MG TABLET PO PRN ×2 (13:21→16:23)
[2021-08-23] MEDS: Acetaminophen 325 MG TABLET PO PRN (13:21)
[2021-08-23] MEDS: Melatonin 3 MG TABLET PO PRN (20:23)
[2021-08-23] MEDS: QUEtiapine Fumarate 300 MG TABLET PO SCH (20:23)
[2021-08-24] MEDS: Apixaban 5 MG TABLET PO SCH ×2 (08:33→19:32)
[2021-08-24] MEDS: Nicotine 7 MG PATCH.TD24 TD SCH (08:34)
[2021-08-24] MEDS: CarBAMazepine XR (12 hr) 100 MG TAB PO SCH ×2 (08:34→19:33)
[2021-08-24] MEDS: QUEtiapine Fumarate 100 MG TABLET PO SCH (08:34)
[2021-08-24] MEDS: hydroCHLOROthiazide 25 MG TABLET PO SCH (08:34)
[2021-08-24] MEDS: *HR* Buprenorphine HCl 8 MG TAB.SUBL SL SCH (13:25)
[2021-08-24] MEDS: haloperidoL 1 MG TABLET PO PRN (15:33)
[2021-08-24 18:22] LABS: Influenza A PCR Negative (Negative); Influenza B PCR Negative (Negative); Resp. Syncytial Virus PCR Negative (Negative)
[2021-08-24 18:25] LABS: SARS-CoV-2 by PCR (In House) Negative (Negative)
[2021-08-24 18:46] VITALS: PULSE 82; TEMP 98.2
[2021-08-24] MEDS: Acetaminophen 325 MG TABLET PO PRN (19:32)
[2021-08-24] MEDS: QUEtiapine Fumarate 300 MG TABLET PO SCH (19:33)
[2021-08-24 20:11] VITALS: BP 146/95
[2021-08-25] MEDS ORDERED: QUEtiapine Fumarate 100 MG TABLET PO SCH (09:00)
[2021-08-25] MEDS ORDERED: hydroCHLOROthiazide 25 MG TABLET PO SCH (09:00)
[2021-08-25] MEDS ORDERED: CarBAMazepine XR (12 hr) 100 MG TAB PO SCH (09:00)
[2021-08-25] MEDS ORDERED: Apixaban 5 MG TABLET PO SCH (09:00)
[2021-08-25] MEDS ORDERED: *HR* Buprenorphine HCl 8 MG TAB.SUBL SL SCH (13:00)
[2021-08-25] MEDS ORDERED: QUEtiapine Fumarate 300 MG TABLET PO SCH (21:00)
== END 2021-08-24 20:45 | DRG 641 ==
LOC: 2NENU 09:52 → EMEROOARM 09:52 → SUATTDRO 15:21 → 2NENU 16:23 → SUATTDRO 08-15 15:52
PROVIDERS: ADMIT Student in an Organized Health Care Education/Training Program; ATTEND Internal Medicine

== ENCOUNTER 2021-08-24 20:55 | Inpatient (IN) ==
[2021-08-24] MEDS ORDERED: *HR* LORazepam 2 MG/ML VIAL IM PRN (21:46)
[2021-08-24] MEDS ORDERED: haloperidoL 5 MG TABLET PO PRN (21:46)
[2021-08-24] MEDS ORDERED: *HR* LORazepam 1 MG TABLET PO PRN (21:46)
[2021-08-24] MEDS ORDERED: traZODone 50 MG TABLET PO PRN (21:46)
[2021-08-24] MEDS ORDERED: Acetaminophen 325 MG TABLET PO PRN (21:46)
[2021-08-24] MEDS ORDERED: Haloperidol Lactate 5 MG/ML VIAL IM PRN (21:46)
[2021-08-24] MEDS ORDERED: QUEtiapine Fumarate 25 MG TABLET PO PRN (21:46)
[2021-08-24] MEDS: hydrOXYzine pamoate 25 MG CAPSULE PO PRN (22:36)
[2021-08-25] MEDS: Nicotine 7 MG PATCH.TD24 TD SCH (08:34)
[2021-08-25] MEDS ORDERED: Gabapentin 300 MG CAPSULE PO PRN (10:22)
[2021-08-25] MEDS ORDERED: QUEtiapine Fumarate 100 MG TABLET PO SCH (10:30)
[2021-08-25] MEDS: QUEtiapine Fumarate 100 MG TABLET PO SCH (11:51)
[2021-08-25] MEDS: Apixaban 5 MG TABLET PO SCH ×2 (11:51→20:53)
[2021-08-25] MEDS: CarBAMazepine XR (12 hr) 100 MG TAB PO SCH ×2 (11:51→20:53)
[2021-08-25] MEDS: *HR* Buprenorphine HCl 8 MG TAB.SUBL SL SCH (14:22)
[2021-08-25] MEDS: hydrOXYzine pamoate 25 MG CAPSULE PO PRN ×2 (16:56→21:51)
[2021-08-25] MEDS ORDERED: Apixaban 5 MG TABLET PO SCH (21:00)
[2021-08-25] MEDS ORDERED: CarBAMazepine XR (12 hr) 100 MG TAB PO SCH (21:00)
[2021-08-25] MEDS ORDERED: QUEtiapine Fumarate 300 MG TABLET PO SCH (21:00)
[2021-08-26] MEDS: CarBAMazepine XR (12 hr) 100 MG TAB PO SCH (08:25)
[2021-08-26] MEDS: Nicotine 7 MG PATCH.TD24 TD SCH (08:25)
[2021-08-26] MEDS: QUEtiapine Fumarate 100 MG TABLET PO SCH (08:26)
[2021-08-26] MEDS: Apixaban 5 MG TABLET PO SCH (08:26)
[2021-08-26 08:57] VITALS: BP 121/83; PULSE 104; TEMP 97.9; O2SAT 98
[2021-08-26] MEDS ORDERED: Moderna Covid-19 Vaccine 100MCG/0.5mL IM ONE (12:14)
[2021-08-26] MEDS: *HR* Buprenorphine HCl 8 MG TAB.SUBL SL SCH (14:16)
[2021-08-26] MEDS: hydrOXYzine pamoate 25 MG CAPSULE PO PRN (14:29)
== END 2021-08-26 15:15 | disposition home or self-care (01) | DRG 885 ==
LOC: 1ANU 20:55
PROVIDERS: ADMIT Psychiatry & Neurology Psychiatry; ATTEND Psychiatry & Neurology Psychiatry

== ENCOUNTER 2021-09-17 13:06 | Observation (INO) ==
[2021-09-17] MEDS ORDERED: Isovue-370 500 ML BOTTLE IVP ONE (13:17)
[2021-09-17 13:26] LABS: Hematocrit 41.3 % (37.5-50.1); Hemoglobin 15.5 g/dL (12.9-16.9); Mean Corpuscular Hemoglobin 30.8 pg (28.0-33.3); Mean Corpuscular Volume 82.1 fL (83.0-100.0); Mean Platelet Volume 8.8 fL (9.4-12.4); Platelet Count 371 K/mcL (140-400); Red Blood Count 5.03 M/mcL (4.19-5.50); Red Cell Distribution Width 11.3 % (11.5-14.5); White Blood Count 7.4 K/mcL (4.3-11.1)
[2021-09-17 13:28] LABS: Mean Corpuscular HGB Conc 37.5 g/dL (31.6-35.5)
[2021-09-17 13:34] LABS: INR 1.7; Prothrombin Time 18.6 Seconds (9.4-12.1)
[2021-09-17 13:36] LABS: Activated Partial Thrombo Time 40.9 Seconds (26.0-36.0)
[2021-09-17 14:17] LABS: Alanine Aminotransferase 13 Units/L (7-52); Albumin 4.5 g/dL (3.5-5.7); Albumin/Globulin Ratio 1.6 (1.1-2.2); Alkaline Phosphatase 84 Units/L (34-104); Aspartate Amino Transferase 22 Units/L (13-39); BUN/Creatinine Ratio 8 (6-26); Bilirubin,Direct 0.1 mg/dL (0.0-0.2); Bilirubin,Indirect 0.7 mg/dL (0.0-1.0); Bilirubin,Total 0.8 mg/dL (0.3-1.0); Blood Urea Nitrogen 7 mg/dL (6-20); Calcium 9.3 mg/dL (8.6-10.3); Carbon Dioxide 31 mEq/L (23-29); Chloride 83 mEq/L (98-107); Ethanol < 10 mg/dL (Less than 10); Globulin 2.9 g/dL (2.4-3.5); Glucose 102 mg/dL (70-105); Osmolality,Calculated 254 (280-300); Potassium 3.3 mEq/L (3.5-5.1); Sodium 123 mEq/L (136-145); Total Protein 7.4 g/dL (6.4-8.9); Troponin I < 0.03 ng/mL (< 0.04); eGFR For African Americans > 60 (> 60); eGFR For Non-African Americans > 60 (> 60)
[2021-09-17 14:40] LABS: Bilirubin,Urine Negative (Negative); Blood,Urine Negative (Negative); Clarity,Urine Clear (Clear); Color,Urine Colorless (Yellow); Glucose,Urine (UA) Normal (Normal); Ketones,Urine Negative (Negative); Leukocyte Esterase,Urine Negative (Negative); Nitrite,Urine Negative (Negative); Protein,Urine Negative (Neg-Trace); Specific Gravity,Urine > 1.030 (1.010-1.025); Urobilinogen,Urine Normal (Normal)
[2021-09-17] MEDS ORDERED: Acetaminophen 325 MG TABLET PO PRN (15:08)
[2021-09-17] MEDS ORDERED: 0.9 % Sodium Chloride 1,000 ML IVC SCH (15:15)
[2021-09-17] MEDS ORDERED: Aspirin Enteric Coated 81 MG Tablet PO SCH (15:15)
[2021-09-17] MEDS ORDERED: Perflutren Lipid Microsphere 1.3 ML in 0.9 % Sodium Chloride 8.7 ML IVP PRN (15:15)
[2021-09-17] MEDS ORDERED: QUEtiapine Fumarate 25 MG TABLET PO PRN (15:18)
[2021-09-17] MEDS ORDERED: hydrOXYzine pamoate 25 MG CAPSULE PO PRN (15:18)
[2021-09-17] MEDS ORDERED: Gabapentin 300 MG CAPSULE PO PRN (15:24)
[2021-09-17 17:13] VITALS: BP 142/89; PULSE 67; TEMP 98.3; O2SAT 95
[2021-09-17] MEDS ORDERED: QUEtiapine Fumarate 300 MG TABLET PO SCH (21:00)
[2021-09-17] MEDS ORDERED: CarBAMazepine XR (12 hr) 100 MG TAB PO SCH (21:00)
[2021-09-17] MEDS ORDERED: Apixaban 5 MG TABLET PO SCH (21:00)
[2021-09-18] MEDS ORDERED: QUEtiapine Fumarate 100 MG TABLET PO SCH (09:00)
== END 2021-09-17 18:08 | disposition left against medical advice (07) ==
LOC: 3BNU 13:06 → EMEROOARM 13:06 → 3BNU 16:19
PROVIDERS: ADMIT Internal Medicine; ATTEND Internal Medicine

== ENCOUNTER 2021-09-17 21:48 | Inpatient (IN) ==
[2021-09-17 23:22] LABS: Bilirubin,Urine Negative (Negative); Blood,Urine Negative (Negative); Clarity,Urine Clear (Clear); Color,Urine Light-Yellow (Yellow); Glucose,Urine (UA) Normal (Normal); Ketones,Urine Negative (Negative); Leukocyte Esterase,Urine Negative (Negative); Nitrite,Urine Negative (Negative); Protein,Urine Trace mg/dL (Neg-Trace); Specific Gravity,Urine 1.026 (1.010-1.025); Urobilinogen,Urine Normal (Normal)
[2021-09-17 23:43] LABS: BUN/Creatinine Ratio 9 (6-26); Blood Urea Nitrogen 7 mg/dL (6-20); Calcium 9.3 mg/dL (8.6-10.3); Carbon Dioxide 29 mEq/L (23-29); Chloride 84 mEq/L (98-107); Glucose 144 mg/dL (70-105); Osmolality,Calculated 257 (280-300); Potassium 2.5 mEq/L (3.5-5.1); Sodium 123 mEq/L (136-145); eGFR For African Americans > 60 (> 60); eGFR For Non-African Americans > 60 (> 60)
[2021-09-17] MEDS ORDERED: 0.9 % Sodium Chloride 1,000 ML IVC ONE (23:46)
[2021-09-17] MEDS ORDERED: Potassium Chloride Elixir 20 MEQ/15 ML UDC PO ONE (23:47)
[2021-09-18 00:09] LABS: Magnesium 1.7 mg/dL (1.6-2.6)
[2021-09-18 00:32] LABS: Creatinine,Urine 133 mg/dL; Sodium, Urine 26.8 mEq/L
[2021-09-18 00:33] LABS: Amphetamine Screen,Urine Negative ng/mL (Cutoff=1000); Barbiturate Screen,Urine Negative ng/mL (Cutoff=200); Benzodiazepines Screen,Urine Negative ng/mL (Cutoff=200); Cannabinoid Screen,Urine Negative ng/mL (Cutoff = 50); Cocaine Screen,Urine Negative ng/mL (Cutoff= 300); Opiate Screen,Urine Negative ng/mL (Cutoff=300); Phencyclidine Screen,Urine Negative ng/mL (Cutoff=25)
[2021-09-18] MEDS ORDERED: Naloxone 0.4 MG/ML INJ IVP PRN (01:27)
[2021-09-18] MEDS ORDERED: Potassium Chloride Elixir 20 MEQ/15 ML UDC PO ONE (02:09)
[2021-09-18] MEDS ORDERED: Perflutren Lipid Microsphere 1.3 ML in 0.9 % Sodium Chloride 8.7 ML IVP PRN (03:15)
[2021-09-18 04:17] LABS: BUN/Creatinine Ratio 10 (6-26); Blood Urea Nitrogen 7 mg/dL (6-20); Calcium 9.4 mg/dL (8.6-10.3); Carbon Dioxide 28 mEq/L (23-29); Chloride 86 mEq/L (98-107); Glucose 84 mg/dL (70-105); Magnesium 1.8 mg/dL (1.6-2.6); Osmolality,Calculated 257 (280-300); Phosphorous 3.7 mg/dL (2.7-4.5); Potassium 2.8 mEq/L (3.5-5.1); Sodium 125 mEq/L (136-145); eGFR For African Americans > 60 (> 60); eGFR For Non-African Americans > 60 (> 60)
[2021-09-18 04:37] LABS: Estimated Average Glucose 111 mg/dl; Hemoglobin A1C 5.5 %
[2021-09-18 05:14] LABS: Red Cell Distribution Width 11.5 % (11.5-14.5)
[2021-09-18 05:16] LABS: Basophils % 0.6 %; Eosinophils # 0.1 K/mcL (0.0-0.6); Eosinophils % 1.1 %; Hematocrit 39.6 % (37.5-50.1); Immature Granulocytes % 0.4 % (0-4); Lymphocytes # 1.6 K/mcL (0.6-4.6); Lymphocytes % 29.3 %; Mean Corpuscular Hemoglobin 31.1 pg (28.0-33.3); Mean Platelet Volume 9.2 fL (9.4-12.4); Monocytes # 0.6 K/mcL (0.0-1.3); Monocytes % 10.3 %; Neutrophils # 3.2 K/mcL (1.6-8.9); Platelet Count 358 K/mcL (140-400); Red Blood Count 4.83 M/mcL (4.19-5.50); Segmented Neutrophils % 58.3 %; White Blood Count 5.4 K/mcL (4.3-11.1)
[2021-09-18 05:35] LABS: Mean Corpuscular HGB Conc 37.9 g/dL (31.6-35.5)
[2021-09-18] MEDS ORDERED: 0.9 % Sodium Chloride 1,000 ML IVC ONE (08:22)
[2021-09-18 08:25] LABS: BUN/Creatinine Ratio 8 (6-26); Blood Urea Nitrogen 7 mg/dL (6-20); Calcium 9.5 mg/dL (8.6-10.3); Carbon Dioxide 32 mEq/L (23-29); Chloride 88 mEq/L (98-107); Glucose 86 mg/dL (70-105); Osmolality,Calculated 261 (280-300); Potassium 3.3 mEq/L (3.5-5.1); Sodium 127 mEq/L (136-145); eGFR For African Americans > 60 (> 60); eGFR For Non-African Americans > 60 (> 60)
[2021-09-18 08:27] LABS: Chol/HDL Ratio 2.6 (0-4.9)
[2021-09-18] MEDS: Aspirin 81 MG TAB.CHEW PO SCH (08:36)
[2021-09-18] MEDS: *HR* Buprenorphine HCl 8 MG TAB.SUBL SL SCH (08:36)
[2021-09-18] MEDS: Apixaban 5 MG TABLET PO SCH ×2 (08:36→19:12)
[2021-09-18 08:40] LABS: Thyroid Stimulating Hormone 1.837 mcIU/mL (0.340-5.600)
[2021-09-18] MEDS ORDERED: Gabapentin 300 MG CAPSULE PO PRN (12:39)
[2021-09-18] MEDS: CarBAMazepine XR (12 hr) 100 MG TAB PO SCH ×2 (13:15→19:12)
[2021-09-18] MEDS: QUEtiapine Fumarate 100 MG TABLET PO SCH (13:15)
[2021-09-18] MEDS: hydrOXYzine pamoate 25 MG CAPSULE PO PRN (19:12)
[2021-09-18] MEDS: Melatonin 3 MG TABLET PO PRN (19:12)
[2021-09-18] MEDS: QUEtiapine Fumarate 25 MG TABLET PO PRN (19:36)
[2021-09-18] MEDS ORDERED: Acetaminophen 325 MG TABLET PO PRN (20:15)
[2021-09-18] MEDS: QUEtiapine Fumarate 300 MG TABLET PO SCH (20:39)
[2021-09-18] MEDS ORDERED: Ketorolac 30 MG/ML VIAL IVP ONE (20:45)
[2021-09-19 02:32] LABS: BUN/Creatinine Ratio 16 (6-26); Blood Urea Nitrogen 12 mg/dL (6-20); Calcium 9.1 mg/dL (8.6-10.3); Carbon Dioxide 27 mEq/L (23-29); Chloride 92 mEq/L (98-107); Glucose 84 mg/dL (70-105); Osmolality,Calculated 265 (280-300); Sodium 128 mEq/L (136-145); eGFR For African Americans > 60 (> 60); eGFR For Non-African Americans > 60 (> 60)
[2021-09-19] MEDS: Aspirin 81 MG TAB.CHEW PO SCH (08:50)
[2021-09-19] MEDS: CarBAMazepine XR (12 hr) 100 MG TAB PO SCH ×2 (08:50→20:27)
[2021-09-19] MEDS: QUEtiapine Fumarate 100 MG TABLET PO SCH (08:51)
[2021-09-19] MEDS: Apixaban 5 MG TABLET PO SCH ×2 (08:51→20:27)
[2021-09-19] MEDS: *HR* Buprenorphine HCl 8 MG TAB.SUBL SL SCH (08:51)
[2021-09-19] MEDS: QUEtiapine Fumarate 25 MG TABLET PO PRN (16:26)
[2021-09-19] MEDS: hydrOXYzine pamoate 25 MG CAPSULE PO PRN ×2 (16:26→20:26)
[2021-09-19] MEDS: Melatonin 3 MG TABLET PO PRN (20:26)
[2021-09-19] MEDS: QUEtiapine Fumarate 300 MG TABLET PO SCH (20:27)
[2021-09-20 04:21] LABS: BUN/Creatinine Ratio 12 (6-26); Blood Urea Nitrogen 9 mg/dL (6-20); Calcium 9.3 mg/dL (8.6-10.3); Carbon Dioxide 27 mEq/L (23-29); Chloride 95 mEq/L (98-107); Glucose 87 mg/dL (70-105); Osmolality,Calculated 268 (280-300); Potassium 3.5 mEq/L (3.5-5.1); Sodium 130 mEq/L (136-145); eGFR For African Americans > 60 (> 60); eGFR For Non-African Americans > 60 (> 60)
[2021-09-20] MEDS: CarBAMazepine XR (12 hr) 100 MG TAB PO SCH ×2 (07:46→21:35)
[2021-09-20] MEDS: QUEtiapine Fumarate 100 MG TABLET PO SCH (07:46)
[2021-09-20] MEDS: *HR* Buprenorphine HCl 8 MG TAB.SUBL SL SCH (07:47)
[2021-09-20] MEDS: Apixaban 5 MG TABLET PO SCH ×2 (07:47→21:35)
[2021-09-20] MEDS: Aspirin 81 MG TAB.CHEW PO SCH (07:47)
[2021-09-20] MEDS: hydrOXYzine pamoate 25 MG CAPSULE PO PRN ×3 (07:53→21:35)
[2021-09-20] MEDS: Nicotine 21 MG PATCH.TD24 TD SCH (14:06)
[2021-09-20] MEDS: Melatonin 3 MG TABLET PO PRN (21:35)
[2021-09-20] MEDS: QUEtiapine Fumarate 300 MG TABLET PO SCH (21:36)
[2021-09-21 07:16] VITALS: BP 126/72; PULSE 85; TEMP 97.4; O2SAT 97
[2021-09-21] MEDS: Aspirin 81 MG TAB.CHEW PO SCH (08:03)
[2021-09-21] MEDS: QUEtiapine Fumarate 100 MG TABLET PO SCH (08:04)
[2021-09-21] MEDS: Apixaban 5 MG TABLET PO SCH (08:04)
[2021-09-21] MEDS: *HR* Buprenorphine HCl 8 MG TAB.SUBL SL SCH (08:04)
[2021-09-21] MEDS: CarBAMazepine XR (12 hr) 100 MG TAB PO SCH (08:04)
[2021-09-21] MEDS: Nicotine 21 MG PATCH.TD24 TD SCH (08:05)
[2021-09-21] MEDS: hydrOXYzine pamoate 25 MG CAPSULE PO PRN (14:03)
[2021-09-21 14:56] LABS: Adenovirus Not Detected (Not Detect); Bordetella Pertussis Not Detected (Not Detect); Chlamydophila pneumoniae Not Detected (Not Detect); Coronavirus 229E Not Detected (Not Detect); Coronavirus HKU1 Not Detected (Not Detect); Coronavirus NL63 Not Detected (Not Detect); Coronavirus OC43 Not Detected (Not Detect); Human Metapneumovirus Not Detected (Not Detect); Human Rhinovirus/Enterovirus Not Detected (Not Detect); Influenza A Subtype 2009 H1 Not Detected (Not Detect); Influenza B Not Detected (Not Detect); Mycoplasma pneumoniae Not Detected (Not Detect); Parainfluenza Virus 1 Not Detected (Not Detect); Parainfluenza Virus 2 Not Detected (Not Detect); Parainfluenza Virus 3 Not Detected (Not Detect); Parainfluenza Virus 4 Not Detected (Not Detect); Respiratory Syncytial Virus Not Detected (Not Detect); SARS-CoV-2 Not Detected (Not Detect)
== END 2021-09-21 15:42 | DRG 641 ==
LOC: 3NENU 21:48 → EMEROOARM 21:48 → SUATTDRO 09-18 00:31 → 3NENU 09-18 01:28 → SUATTDRO 09-19 10:04
PROVIDERS: ADMIT Internal Medicine; ATTEND Internal Medicine

== ENCOUNTER 2021-09-21 15:33 | Inpatient (IN) ==
[2021-09-21] MEDS ORDERED: hydrOXYzine pamoate 25 MG CAPSULE PO PRN (16:14)
[2021-09-21] MEDS ORDERED: haloperidoL 5 MG TABLET PO PRN (16:17)
[2021-09-21] MEDS ORDERED: *HR* LORazepam 2 MG/ML VIAL IM PRN (16:17)
[2021-09-21] MEDS ORDERED: traZODone 50 MG TABLET PO PRN (16:17)
[2021-09-21] MEDS ORDERED: Haloperidol Lactate 5 MG/ML VIAL IM PRN (16:17)
[2021-09-21] MEDS ORDERED: Acetaminophen 325 MG TABLET PO PRN (16:17)
[2021-09-21] MEDS ORDERED: *HR* LORazepam 1 MG TABLET PO PRN (16:17)
[2021-09-21 16:41] VITALS: TEMP 98.2; O2SAT 98
[2021-09-21 18:45] VITALS: BP 160/100; PULSE 82
[2021-09-21] MEDS ORDERED: CarBAMazepine XR (12 hr) 100 MG TAB PO SCH (21:00)
[2021-09-21] MEDS ORDERED: QUEtiapine Fumarate 300 MG TABLET PO SCH (21:00)
[2021-09-21] MEDS ORDERED: Apixaban 5 MG TABLET PO SCH (21:00)
[2021-09-22] MEDS ORDERED: Aspirin 81 MG TAB.CHEW PO SCH (09:00)
[2021-09-22] MEDS ORDERED: QUEtiapine Fumarate 100 MG TABLET PO SCH (09:00)
[2021-09-22] MEDS ORDERED: *HR* Buprenorphine HCl 8 MG TAB.SUBL SL SCH (09:00)
[2021-09-22] MEDS ORDERED: Nicotine 21 MG PATCH.TD24 TD SCH (09:00)
== END 2021-09-21 19:52 | disposition other institution (70) | DRG 101 ==
LOC: 1ANU 15:33
PROVIDERS: ADMIT Psychiatry & Neurology Psychiatry; ATTEND Psychiatry & Neurology Psychiatry

== ENCOUNTER 2021-09-21 19:52 | Observation (INO) ==
[~2021-09-21 19:52] MED LIST: *HR* LORazepam 2 MG/ML VIAL IVP ONE; *HR* Midazolam HCl 2 MG/2 ML VIAL IVP ONE
[2021-09-21] MEDS ORDERED: *HR* LORazepam 2 MG/ML VIAL ONE (19:55)
[2021-09-21] MEDS ORDERED: Isovue-370 500 ML BOTTLE IVP ONE (20:31)
[2021-09-21 20:47] LABS: Basophils % 0.7 %; Hematocrit 37.4 % (37.5-50.1); Hemoglobin 13.5 g/dL (12.9-16.9); Immature Granulocytes % 0.3 % (0-4); Lymphocytes # 0.8 K/mcL (0.6-4.6); Lymphocytes % 12.7 %; Mean Corpuscular HGB Conc 36.1 g/dL (31.6-35.5); Mean Corpuscular Hemoglobin 30.8 pg (28.0-33.3); Mean Corpuscular Volume 85.2 fL (83.0-100.0); Mean Platelet Volume 8.7 fL (9.4-12.4); Monocytes # 0.4 K/mcL (0.0-1.3); Monocytes % 7.2 %; Neutrophils # 4.8 K/mcL (1.6-8.9); Platelet Count 367 K/mcL (140-400); Red Blood Count 4.39 M/mcL (4.19-5.50); Red Cell Distribution Width 11.2 % (11.5-14.5); Segmented Neutrophils % 79.1 %; White Blood Count 6.1 K/mcL (4.3-11.1)
[2021-09-21 20:57] LABS: BUN/Creatinine Ratio 8 (6-26); Blood Urea Nitrogen 6 mg/dL (6-20); Calcium 8.3 mg/dL (8.6-10.3); Carbon Dioxide 23 mEq/L (23-29); Chloride 96 mEq/L (98-107); Glucose 134 mg/dL (70-105); Magnesium 1.6 mg/dL (1.6-2.6); Osmolality,Calculated 268 (280-300); Potassium 3.4 mEq/L (3.5-5.1); Sodium 129 mEq/L (136-145); eGFR For African Americans > 60 (> 60); eGFR For Non-African Americans > 60 (> 60)
[2021-09-21 21:34] LABS: Bilirubin,Urine Negative (Negative); Blood,Urine Trace (Negative); Clarity,Urine Clear (Clear); Color,Urine Light-Yellow (Yellow); Glucose,Urine (UA) Normal (Normal); Ketones,Urine Trace mg/dL (Negative); Leukocyte Esterase,Urine Negative (Negative); Nitrite,Urine Negative (Negative); PH,Urine 6.5 pH Units (5.0-8.0); Protein,Urine Trace mg/dL (Neg-Trace); Specific Gravity,Urine 1.014 (1.010-1.025); Urobilinogen,Urine Normal (Normal); WBC,Urine 0-3 per hpf (0-3)
[2021-09-21 21:55] LABS: Amphetamine Screen,Urine Negative ng/mL (Cutoff=1000); Barbiturate Screen,Urine Negative ng/mL (Cutoff=200); Benzodiazepines Screen,Urine Positive ng/mL (Cutoff=200); Cannabinoid Screen,Urine Negative ng/mL (Cutoff = 50); Cocaine Screen,Urine Negative ng/mL (Cutoff= 300); Opiate Screen,Urine Negative ng/mL (Cutoff=300); Phencyclidine Screen,Urine Negative ng/mL (Cutoff=25)
[2021-09-21] MEDS ORDERED: Ondansetron ODT 4 MG TAB.RAPDIS SL PRN (22:32)
[2021-09-21] MEDS ORDERED: Naloxone 0.4 MG/ML INJ IVP PRN (22:32)
[2021-09-21] MEDS ORDERED: Melatonin 3 MG TABLET PO PRN (22:32)
[2021-09-21 22:56] LABS: Creatine Kinase 67 Units/L (30-223); Phosphorous 2.8 mg/dL (2.7-4.5)
[2021-09-21] MEDS ORDERED: Gabapentin 300 MG CAPSULE PO PRN (23:16)
[2021-09-21] MEDS ORDERED: Magnesium Oxide 400 MG TABLET PO SCH (23:45)
[2021-09-22] MEDS ORDERED: Magnesium Oxide 400 MG TABLET PO ONE (00:15)
[2021-09-22] MEDS ORDERED: QUEtiapine Fumarate 25 MG TABLET PO PRN (02:46)
[2021-09-22] MEDS ORDERED: 0.9 % Sodium Chloride 1,000 ML IVC SCH (03:00)
[2021-09-22] MEDS ORDERED: levETIRAcetam 250 MG TABLET PO SCH (06:00)
[2021-09-22 06:04] LABS: Basophils # 0.1 K/mcL (0.0-0.2); Basophils % 0.9 %; Eosinophils # 0.1 K/mcL (0.0-0.6); Eosinophils % 1.1 %; Hematocrit 39.5 % (37.5-50.1); Immature Granulocytes % 0.3 % (0-4); Lymphocytes % 30.3 %; Mean Corpuscular HGB Conc 35.4 g/dL (31.6-35.5); Mean Corpuscular Hemoglobin 30.7 pg (28.0-33.3); Mean Corpuscular Volume 86.6 fL (83.0-100.0); Mean Platelet Volume 8.9 fL (9.4-12.4); Monocytes # 0.7 K/mcL (0.0-1.3); Monocytes % 10.3 %; Neutrophils # 3.7 K/mcL (1.6-8.9); Platelet Count 380 K/mcL (140-400); Red Blood Count 4.56 M/mcL (4.19-5.50); Red Cell Distribution Width 11.5 % (11.5-14.5); Segmented Neutrophils % 57.1 %; White Blood Count 6.4 K/mcL (4.3-11.1)
[2021-09-22 06:30] LABS: BUN/Creatinine Ratio 7 (6-26); Blood Urea Nitrogen 5 mg/dL (6-20); Calcium 8.9 mg/dL (8.6-10.3); Carbon Dioxide 28 mEq/L (23-29); Chloride 99 mEq/L (98-107); Glucose 83 mg/dL (70-105); Osmolality,Calculated 272 (280-300); Potassium 3.9 mEq/L (3.5-5.1); Sodium 133 mEq/L (136-145); eGFR For African Americans > 60 (> 60); eGFR For Non-African Americans > 60 (> 60)
[2021-09-22] MEDS ORDERED: hydrOXYzine pamoate 25 MG CAPSULE PO PRN (07:35)
[2021-09-22 08:29] LABS: Troponin I < 0.03 ng/mL (< 0.04)
[2021-09-22] MEDS ORDERED: QUEtiapine Fumarate 100 MG TABLET PO SCH (09:00)
[2021-09-22] MEDS ORDERED: Buprenorphine Hcl/Naloxone Hcl 8-2 MG SL SCH (09:00)
[2021-09-22] MEDS ORDERED: CarBAMazepine XR (12 hr) 100 MG TAB PO SCH ×2 (09:00→21:00)
[2021-09-22 14:33] LABS: Carbamazepine (Tegretol) 4 mcg/mL (4-12)
[2021-09-22 15:07] VITALS: BP 153/90; PULSE 87; TEMP 98.6; O2SAT 98
[2021-09-22] MEDS ORDERED: QUEtiapine Fumarate 300 MG TABLET PO SCH (21:00)
[2021-09-22] MEDS ORDERED: Apixaban 5 MG TABLET PO SCH (21:00)
== END 2021-09-22 17:04 | disposition home or self-care (01) ==
LOC: EMEROOARM 19:52 → 3BNU 19:52 → SUATTDRO 22:28 → 3BNU 22:52
PROVIDERS: ADMIT Internal Medicine; ATTEND Nurse Practitioner

== ENCOUNTER 2021-09-25 12:32 | Observation (INO) ==
[2021-09-25] MEDS ORDERED: Naloxone 0.4 MG/ML INJ IVP PRN (17:19)
[2021-09-25] MEDS ORDERED: Ondansetron ODT 4 MG TAB.RAPDIS SL PRN (17:19)
[2021-09-25] MEDS ORDERED: QUEtiapine Fumarate 25 MG TABLET PO PRN (17:23)
[2021-09-25] MEDS ORDERED: Gabapentin 300 MG CAPSULE PO PRN (17:23)
[2021-09-25] MEDS: 0.9 % Sodium Chloride 1,000 ML IVC SCH (17:47)
[2021-09-25 18:19] LABS: Basophils % 0.6 %; Eosinophils # 0.1 K/mcL (0.0-0.6); Eosinophils % 1.4 %; Hematocrit 40.6 % (37.5-50.1); Immature Granulocytes % 0.3 % (0-4); Lymphocytes % 30.5 %; Mean Corpuscular HGB Conc 36.9 g/dL (31.6-35.5); Mean Corpuscular Hemoglobin 31.3 pg (28.0-33.3); Mean Corpuscular Volume 84.8 fL (83.0-100.0); Mean Platelet Volume 8.7 fL (9.4-12.4); Monocytes # 0.6 K/mcL (0.0-1.3); Monocytes % 9.5 %; Neutrophils # 3.9 K/mcL (1.6-8.9); Platelet Count 403 K/mcL (140-400); Red Blood Count 4.79 M/mcL (4.19-5.50); Red Cell Distribution Width 11.4 % (11.5-14.5); Segmented Neutrophils % 57.7 %; White Blood Count 6.7 K/mcL (4.3-11.1)
[2021-09-25 18:26] LABS: Sodium, Urine 76.5 mEq/L
[2021-09-25] MEDS ORDERED: QUEtiapine Fumarate 300 MG TABLET PO SCH (21:00)
[2021-09-25] MEDS: CarBAMazepine XR (12 hr) 100 MG TAB PO SCH (21:40)
[2021-09-25] MEDS: Apixaban 5 MG TABLET PO SCH (21:42)
[2021-09-26] MEDS: 0.9 % Sodium Chloride 1,000 ML IVC SCH (03:39)
[2021-09-26 05:44] LABS: Alanine Aminotransferase 10 Units/L (7-52); Albumin 3.9 g/dL (3.5-5.7); Albumin/Globulin Ratio 2.2 (1.1-2.2); Alkaline Phosphatase 70 Units/L (34-104); Aspartate Amino Transferase 15 Units/L (13-39); BUN/Creatinine Ratio 8 (6-26); Bilirubin,Total 0.7 mg/dL (0.3-1.0); Blood Urea Nitrogen 6 mg/dL (6-20); Calcium 8.7 mg/dL (8.6-10.3); Carbon Dioxide 28 mEq/L (23-29); Chloride 93 mEq/L (98-107); Globulin 1.8 g/dL (2.4-3.5); Glucose 78 mg/dL (70-105); Osmolality,Calculated 264 (280-300); Potassium 3.5 mEq/L (3.5-5.1); Sodium 129 mEq/L (136-145); Total Protein 5.7 g/dL (6.4-8.9); eGFR For African Americans > 60 (> 60); eGFR For Non-African Americans > 60 (> 60)
[2021-09-26] MEDS: CarBAMazepine XR (12 hr) 100 MG TAB PO SCH (08:09)
[2021-09-26] MEDS: Apixaban 5 MG TABLET PO SCH (08:09)
[2021-09-26 08:13] VITALS: O2SAT 98
[2021-09-26] MEDS ORDERED: hydrOXYzine pamoate 25 MG CAPSULE PO PRN (08:34)
[2021-09-26] MEDS ORDERED: hydroCHLOROthiazide 25 MG TABLET PO SCH (09:00)
[2021-09-26] MEDS ORDERED: QUEtiapine Fumarate 100 MG TABLET PO SCH (09:00)
[2021-09-26 12:46] VITALS: BP 136/74; PULSE 79; TEMP 97.8
== END 2021-09-26 15:13 | disposition home or self-care (01) ==
LOC: 3BNU → SUATTDRO 13:53
PROVIDERS: ADMIT Internal Medicine; ATTEND Family Medicine

== ENCOUNTER 2021-10-26 16:27 | Inpatient (IN) ==
[2021-10-26 17:32] LABS: Alanine Aminotransferase 10 Units/L (7-52); Albumin 4.3 g/dL (3.5-5.7); Alkaline Phosphatase 67 Units/L (34-104); Aspartate Amino Transferase 11 Units/L (13-39); BUN/Creatinine Ratio 11 (6-26); Bilirubin,Direct 0.2 mg/dL (0.0-0.2); Bilirubin,Indirect 0.5 mg/dL (0.0-1.0); Bilirubin,Total 0.7 mg/dL (0.3-1.0); Blood Urea Nitrogen 7 mg/dL (6-20); Calcium 8.7 mg/dL (8.6-10.3); Carbon Dioxide 23 mEq/L (23-29); Chloride 82 mEq/L (98-107); Globulin 2.2 g/dL (2.4-3.5); Glucose 140 mg/dL (70-105); Lipase 11 Units/L (11-82); Osmolality,Calculated 248 (280-300); Potassium 2.7 mEq/L (3.5-5.1); Sodium 119 mEq/L (136-145); Total Protein 6.5 g/dL (6.4-8.9); eGFR For African Americans > 60 (> 60); eGFR For Non-African Americans > 60 (> 60)
[2021-10-26 17:45] LABS: Basophils % 0.4 %; Eosinophils # 0.1 K/mcL (0.0-0.6); Eosinophils % 2.1 %; Hematocrit 40.7 % (37.5-50.1); Hemoglobin 15.2 g/dL (12.9-16.9); Immature Granulocytes % 0.6 % (0-4); Lymphocytes # 0.9 K/mcL (0.6-4.6); Mean Corpuscular Hemoglobin 30.5 pg (28.0-33.3); Mean Corpuscular Volume 81.7 fL (83.0-100.0); Mean Platelet Volume 8.6 fL (9.4-12.4); Monocytes # 0.4 K/mcL (0.0-1.3); Monocytes % 7.9 %; Neutrophils # 3.3 K/mcL (1.6-8.9); Platelet Count 379 K/mcL (140-400); Red Blood Count 4.98 M/mcL (4.19-5.50); Red Cell Distribution Width 11.2 % (11.5-14.5); White Blood Count 4.7 K/mcL (4.3-11.1)
[2021-10-26 17:46] LABS: Mean Corpuscular HGB Conc 37.3 g/dL (31.6-35.5)
[2021-10-26] MEDS ORDERED: Isovue-370 500 ML BOTTLE IVP ONE (18:29)
[2021-10-26] MEDS ORDERED: Potassium Chloride Elixir 20 MEQ/15 ML UDC PO ONE (18:30)
[2021-10-26] MEDS ORDERED: Ondansetron 4 MG/2 ML VIAL IVP ONE (18:30)
[2021-10-26] MEDS ORDERED: 0.9 % Sodium Chloride 1,000 ML IVC SCH (18:45)
[2021-10-26 19:37] LABS: Ethanol < 10 mg/dL (Less than 10); Troponin I < 0.03 ng/mL (< 0.04)
[2021-10-26 20:32] LABS: Bilirubin,Urine Negative (Negative); Blood,Urine Negative (Negative); Clarity,Urine Clear (Clear); Color,Urine Light-Orange (Yellow); Glucose,Urine (UA) Normal (Normal); Ketones,Urine Trace mg/dL (Negative); Leukocyte Esterase,Urine Negative (Negative); Nitrite,Urine Negative (Negative); PH,Urine 7.5 pH Units (5.0-8.0); Protein,Urine Trace mg/dL (Neg-Trace); Specific Gravity,Urine > 1.030 (1.010-1.025); Urobilinogen,Urine Normal (Normal)
[2021-10-26 21:29] LABS: Adenovirus Not Detected (Not Detect); Bordetella Pertussis Not Detected (Not Detect); Chlamydophila pneumoniae Not Detected (Not Detect); Coronavirus 229E Not Detected (Not Detect); Coronavirus HKU1 Not Detected (Not Detect); Coronavirus NL63 Not Detected (Not Detect); Coronavirus OC43 Not Detected (Not Detect); Human Metapneumovirus Not Detected (Not Detect); Human Rhinovirus/Enterovirus Not Detected (Not Detect); Influenza A Subtype 2009 H1 Not Detected (Not Detect); Influenza B Not Detected (Not Detect); Mycoplasma pneumoniae Not Detected (Not Detect); Parainfluenza Virus 1 Not Detected (Not Detect); Parainfluenza Virus 2 Not Detected (Not Detect); Parainfluenza Virus 3 Not Detected (Not Detect); Parainfluenza Virus 4 Not Detected (Not Detect); Respiratory Syncytial Virus Not Detected (Not Detect); SARS-CoV-2 Not Detected (Not Detect)
[2021-10-26] MEDS ORDERED: Metoclopramide 10 MG/2 ML VIAL IVP ONE (22:37)
[2021-10-26] MEDS ORDERED: Naloxone 0.4 MG/ML INJ IVP PRN (22:46)
[2021-10-26] MEDS ORDERED: Acetaminophen 325 MG TABLET PO PRN (22:46)
[2021-10-26] MEDS ORDERED: *HR* Promethazine 25 MG/ML VIAL IM PRN (22:46)
[2021-10-26] MEDS ORDERED: Ondansetron 4 MG/2 ML VIAL IVP PRN (22:46)
[2021-10-26] MEDS ORDERED: Melatonin 3 MG TABLET PO PRN (22:46)
[2021-10-26] MEDS ORDERED: Gabapentin 300 MG CAPSULE PO PRN (22:49)
[2021-10-26 23:25] LABS: BUN/Creatinine Ratio 9 (6-26); Blood Urea Nitrogen 7 mg/dL (6-20); Calcium 8.6 mg/dL (8.6-10.3); Carbon Dioxide 26 mEq/L (23-29); Chloride 84 mEq/L (98-107); Glucose 111 mg/dL (70-105); Osmolality,Calculated 247 (280-300); Potassium 3.1 mEq/L (3.5-5.1); Sodium 119 mEq/L (136-145); eGFR For African Americans > 60 (> 60); eGFR For Non-African Americans > 60 (> 60)
[2021-10-27] MEDS ORDERED: 0.9 % Sodium Chloride 1,000 ML IVC SCH (01:31)
[2021-10-27] MEDS ORDERED: *HR* LORazepam 1 MG TABLET PO ONE (03:57)
[2021-10-27 04:08] LABS: Amphetamine Screen,Urine Negative ng/mL (Cutoff=1000); Barbiturate Screen,Urine Negative ng/mL (Cutoff=200); Benzodiazepines Screen,Urine Negative ng/mL (Cutoff=200); Cannabinoid Screen,Urine Negative ng/mL (Cutoff = 50); Cocaine Screen,Urine Negative ng/mL (Cutoff= 300); Opiate Screen,Urine Negative ng/mL (Cutoff=300); Phencyclidine Screen,Urine Negative ng/mL (Cutoff=25)
[2021-10-27 04:59] LABS: INR 1.1; Prothrombin Time 12.2 Seconds (9.4-12.1)
[2021-10-27 05:09] LABS: BUN/Creatinine Ratio 10 (6-26); Blood Urea Nitrogen 6 mg/dL (6-20); Calcium 8.5 mg/dL (8.6-10.3); Carbon Dioxide 25 mEq/L (23-29); Chloride 87 mEq/L (98-107); Glucose 83 mg/dL (70-105); Magnesium 1.5 mg/dL (1.6-2.6); Osmolality,Calculated 249 (280-300); Sodium 121 mEq/L (136-145); eGFR For African Americans > 60 (> 60); eGFR For Non-African Americans > 60 (> 60)
[2021-10-27] MEDS: Apixaban 5 MG TABLET PO SCH ×2 (07:46→20:42)
[2021-10-27 08:11] LABS: Hemoglobin 13.6 g/dL (12.9-16.9); Immature Platelets 3.1 % (1.1-6.1); Mean Corpuscular HGB Conc 35.8 g/dL (31.6-35.5); Mean Corpuscular Hemoglobin 30.7 pg (28.0-33.3); Mean Corpuscular Volume 85.8 fL (83.0-100.0); Mean Platelet Volume 8.5 fL (9.4-12.4); Red Blood Count 4.43 M/mcL (4.19-5.50); Red Cell Distribution Width 11.8 % (11.5-14.5); White Blood Count 5.4 K/mcL (4.3-11.1)
[2021-10-27] MEDS ORDERED: CarBAMazepine XR (12 hr) 100 MG TAB PO SCH (09:00)
[2021-10-27 10:40] LABS: Thyroid Stimulating Hormone 0.358 mcIU/mL (0.340-5.600)
[2021-10-27] MEDS ORDERED: hydrOXYzine pamoate 25 MG CAPSULE PO PRN (12:54)
[2021-10-27] MEDS ORDERED: QUEtiapine Fumarate 25 MG TABLET PO PRN (12:54)
[2021-10-27] MEDS ORDERED: NALOXONE 4 MG NS SCH (13:00)
[2021-10-27] MEDS: *HR* Buprenorphine HCl 8 MG TAB.SUBL SL SCH (17:04)
[2021-10-27] MEDS: QUEtiapine Fumarate 300 MG TABLET PO SCH (20:42)
[2021-10-27] MEDS: CarBAMazepine XR (12 hr) 100 MG TAB PO SCH (20:42)
[2021-10-28 03:57] LABS: BUN/Creatinine Ratio 10 (6-26); Blood Urea Nitrogen 7 mg/dL (6-20); Calcium 8.8 mg/dL (8.6-10.3); Carbon Dioxide 28 mEq/L (23-29); Chloride 96 mEq/L (98-107); Glucose 95 mg/dL (70-105); Osmolality,Calculated 270 (280-300); Potassium 3.4 mEq/L (3.5-5.1); Sodium 131 mEq/L (136-145); eGFR For African Americans > 60 (> 60); eGFR For Non-African Americans > 60 (> 60)
[2021-10-28] MEDS: *HR* Buprenorphine HCl 8 MG TAB.SUBL SL SCH (08:22)
[2021-10-28] MEDS: Apixaban 5 MG TABLET PO SCH ×2 (08:22→20:19)
[2021-10-28] MEDS: CarBAMazepine XR (12 hr) 100 MG TAB PO SCH (08:22)
[2021-10-28] MEDS: QUEtiapine Fumarate 100 MG TABLET PO SCH (08:22)
[2021-10-28] MEDS ORDERED: Valproic Acid INJ 1,000 MG in 0.9 % Sodium Chloride 100 ML IVPB ONE (10:42)
[2021-10-28] MEDS: Magnesium Oxide 400 MG TABLET PO SCH (15:40)
[2021-10-28] MEDS: Divalproex Sodium 125 MG Sprinkle Capsule (DR) PO SCH (20:17)
[2021-10-28] MEDS: QUEtiapine Fumarate 300 MG TABLET PO SCH (20:18)
[2021-10-29] MEDS: *HR* Buprenorphine HCl 8 MG TAB.SUBL SL SCH (07:46)
[2021-10-29] MEDS: Apixaban 5 MG TABLET PO SCH (07:46)
[2021-10-29] MEDS: Divalproex Sodium 125 MG Sprinkle Capsule (DR) PO SCH (07:46)
[2021-10-29] MEDS: Magnesium Oxide 400 MG TABLET PO SCH (07:46)
[2021-10-29] MEDS: QUEtiapine Fumarate 100 MG TABLET PO SCH (07:47)
[2021-10-29] MEDS ORDERED: amLODIPine 5 MG TABLET PO SCH (09:00)
[2021-10-29 11:47] VITALS: BP 122/75; PULSE 75; TEMP 97.3; O2SAT 99
== END 2021-10-29 12:34 | disposition home or self-care (01) | DRG 643 ==
LOC: EMEROOARM 16:27 → 2ANU 16:27 → SUATTDRO 22:04 → 2ANU 22:43 → SUATTDRO 10-27 14:50
PROVIDERS: ADMIT Internal Medicine; ATTEND Internal Medicine